=== PATIENT | male | born 1980 | race Caucasian/White ===

== ENCOUNTER 2016-12-01 17:26 | Emergency (ER) | payer BC ==
[2016-12-01 18:03] VITALS: RESP 16; TEMP 98.6
--- NOTE | 2016-12-01 18:21 | UCPHY ---
H & P Time Seen by Provider: 12/01/16 18:09 Patient Type: New HPI/ROS: This patient has a sore throat of moderate intensity associated with myalgias. Symptoms started 4 days ago worsening. Has minimal improvement from over-the- counter analgesics and notes no other exacerbating or alleviating factors. ROS: No high fevers or chills. Does have low-grade subjective fevers. HEENT: No significant nasal congestion. No ear pain. Pulmonary: No cough cardiovascular: No complaints GI: No nausea vomiting musculoskeletal: He reports mild myalgias. He does complain of insomnia with no sleep over the past 2 nights he does not think it is related to pain. 10 point ROS is otherwise negative. Past Medical/Surgical History: Otherwise healthy Smoking Status: Never smoked Physical Exam: Physical Exam Vital signs are normal. General: No acute distress HEENT: Atraumatic. Eyes: Pupils equal and react to light. Extraocular motions are intact. Lungs: No respiratory distress. Cardiac: regular rate and rhythm with no murmur, seema or rub Skin: No rash or pallor. Neuro: Alert and oriented x3 with no sensorimotor deficits. Constitutional: Initial Vital Signs Temperature (C) 37 C 12/01/16 18:01 Heart Rate 83 12/01/16 18:01 Respiratory Rate 16 12/01/16 18:01 Blood Pressure 168/98 H 12/01/16 18:01 O2 Sat (%) 97 12/01/16 18:01 O2 Delivery Mode Room Air Allergies/Adverse Reactions: No Known Allergies Allergy (Verified 12/01/16 18:02) Home Medications: Medication Instructions Recorded Penicillin V Potassium [Pen Vk 500 mg PO BID #20 tab 12/01/16 500mg (*)] Zaleplon [Sonata] 10 mg PO HS PRN #4 capsule 12/01/16 Medical Decision Making ED Course/Re-evaluation: Rapid strep is positive. I counseled patient regarding strep pharyngitis and insomnia. - Data Points Laboratory Results: 12/01/16 17:57 Group A Strep Screen POSITIVE H (NEGATIVE) Departure - Departure Disposition: Home, Routine, Self-Care Clinical Impression: Strep pharyngitis Condition: Good Instructions: Strep Throat (ED), Insomnia (ED) Additional Instructions: Diagnosis: 1. Strep pharyngitis 2. Insomnia Plan: Ibuprofen and Tylenol for throat pain Penicillin antibiotic as prescribed Sonata if needed for sleep Return for any significant worsening despite the treatment plan Referrals: NONE *PRIMARY CARE P,. [Primary Care Provider] - As per Instructions Stand Alone Forms: Work Excuse Prescriptions: Penicillin V Potassium [Pen Vk 500mg (*)] 500 mg PO BID #20 tab Zaleplon [Sonata] 10 mg PO HS PRN #4 capsule PRN Reason: insomnia - PQRS PQRS Measurement: NA
[2016-12-01 18:24] VITALS: BP 155/98; PULSE 82; O2SAT 96
== END 2016-12-01 18:24 | disposition home or self-care (01) ==
LOC: CED 17:26
DX: J02.0 Streptococcal pharyngitis (principal)
CPT/HCPCS: 87880-PO; 99203-PO; G0463-PO